=== PATIENT | male | born 1945 | race Caucasian/White ===

== ENCOUNTER 2019-03-16 12:18 | Inpatient (IN) | payer OTHER, MEDICARE ==
[2019-03-16 12:30] VITALS: BMI 33.9
--- NOTE | 2019-03-16 12:53 | PDOC ---
History of Present Illness - General Chief Complaint: Choking Sensation Stated Complaint: DYSPHAGIA / SOB Time Seen by Provider: 03/16/19 12:51 History Source: Patient Exam Limitations: No Limitations - History of Present Illness Initial Comments: 03/16/19 13:13 74M w/ hiatal hernia, HLD, spinal fusion(L4-L5), BLE neuropathy presents with complaint of sticking sensation in the throat x1.5days after ingesting steak on Sunday night(03/14/19). Had an immediate sensation of something sticking in his lower chest. Since Sunday night, could not tolerate PO intake of food or water, experience immediate spitting things up. Has had inability to tolerate saliva, constantly spitting. Has hiccups. Denies dysphonia. Feels better standing upright. Feels increased discomfort when lying down. Saw UC one day prior, XR did not show anything and sent home with metoclopramide. Pt's symptoms did not improve. Tried [employer] chocolate milkshake prior to [facility]. Denies F/C/CP/SOB/palpitations. Years prior, had steak stuck in his throat that prompted an ED visit that eventually passed after glucagon 1mg x2. Has had EGDs ~q5ys with biopsies taken, no balloon dilations. Had Barium Swallow study in November 2018 showed a small sliding hernia, no esoph strictures. Associated Symptoms: denies: chest pain, cough, diaphoresis, fever/chills, headaches, nausea/vomiting (spits up food after ingestion), shortness of breath , syncope Past History - Travel Traveled outside of the country in the last 30 days: No Close contact w/someone who was outside of country & ill: No - Past Medical History Allergies/Adverse Reactions: Allergies Allergy/AdvReac Type Severity Reaction Status Date / Time No Known Allergies Allergy Verified 03/16/19 12:21 Home Medications: Ambulatory Orders Ascorbic Acid [Vitamin C] 500 mg PO DAILY 05/25/16 Calcium (Oyster Shell) [Os-Selvin 500MG -] 500 mg PO DAILY 05/25/16 Furosemide [Lasix -] 40 mg PO ASDIR 05/25/16 Potassium Chloride 10 meq PO ASDIR 05/25/16 Simvastatin 10 mg PO HS 05/25/16 Acetaminophen [Tylenol .Regular Strength -] 650 mg PO Q4H PRN #0 tablet 10/28/ 16 Cyanocobalamin [Vitamin B12 -] 1,000 mcg PO DAILY 03/16/19 Famotidine [Pepcid] 40 mg PO DAILY 03/16/19 Metoclopramide HCl [Reglan -] 10 mg PO QID PRN 03/16/19 Anemia: No Asthma: (c-pap at night) Cancer: No Cardiac Disorders: No CVA: No COPD: No CHF: No Dementia: No Diabetes: No GI Disorders: No Disorders: No HTN: No Hypercholesterolemia: Yes Liver Disease: No Seizures: No Thyroid Disease: No Other medical history: chronic venous insufficiency, neuropathy - Surgical History Abdominal Surgery: No Appendectomy: No Cardiac Surgery: No Cholecystectomy: No Lung Surgery: No Neurologic Surgery: Yes (back, L4-5) Orthopedic Surgery: No Other Surgical History: 03/16/19 13:59 BLE vein sx - Family Disease History Family Disease History: Heart Disease: Father ([place], HTN), Mother (HTN) - Immunization History Immunization Up to Date: Yes - Suicide/Smoking/Psychosocial Hx Smoking Status: No Smoking History: Never smoked Have you smoked in the past 12 months: No Number of Cigarettes Smoked Daily: 0 Hx Alcohol Use: No Drug/Substance Use Hx: No Substance Use Type: None Hx Substance Use Treatment: No Review of Systems - Review of Systems Able to Perform ROS?: Yes Is the patient limited Polish proficient: No Constitutional: No: Chills, Diaphoresis, Fever HEENTM: Yes: Difficulty Swallowing, Mouth Swelling (will immediately spit up food/water/saliva). No: Eye Pain, Blurred Vision Respiratory: No: Cough, Orthopnea, Shortness of Breath, Stridor, Wheezing Cardiac (ROS): No: Chest Pain (sensation of sticking in lower midline chest), Irregular Heart Rate, Palpitations ABD/GI: Yes: Difficulty Swallowing. No: Constipated, Diarrhea, Nausea, Vomiting , Abdominal cramping : No: Burning, Dysuria, Urgency Integumentary: No: Erythema, Flushing Neurological: No: Headache, Numbness, Dizziness *Physical Exam - Vital Signs Last Vital Signs Temp Pulse Resp BP Pulse Ox 98.3 F 83 18 143/87 100 03/16/19 12:22 03/16/19 12:22 03/16/19 12:22 03/16/19 12:22 03/16/19 12:22 - Physical Exam General Appearance: Yes: Mild Distress. No: Obese HEENT: positive: Normal Voice, Excessive drooling (spitting clear and brown saliva). negative: Scleral Icterus (R), Scleral Icterus (L) Neck: positive: Trachea midline. negative: Stridor, Lymphadenopathy (R), Lymphadenopathy (L) Respiratory/Chest: positive: Lungs Clear, Normal Breath Sounds. negative: Respiratory Distress, Labored Respiration, Crackles, Rales, Rhonchi, Stridor, Wheezing Cardiovascular: positive: Regular Rhythm, Regular Rate, S1, S2 Gastrointestinal/Abdominal: positive: Soft, Other (midline rectus diastasis). negative: Distended, Guarding, Rebound Extremity: positive: Normal Range of Motion. negative: Swelling, Calf Tenderness, Erythema Integumentary: positive: Dry, Warm Neurologic: positive: Alert ED Treatment Course - LABORATORY CBC & Chemistry Diagram: 03/16/19 14:00 03/16/19 14:00 Medical Decision Making - Medical Decision Making 03/16/19 14:04 - fu CBC, CMP, INR, T&S - fu CXR, neck XR - fu EKG - administer glucagon 2mg IV 03/16/19 14:54 - paged GI(Dr Juan Parada -- [facility]) 03/16/19 15:56 - Dr Parada called back, no longer comes to [facility] - Dr Grant contacted -- recommends another glucagon 2mg IV, admission, possible EGD tonight - patient informed of his bloodwork results and recommendation for admission with possible EGD tonight 03/16/19 23:57 - patient endorses feeling better, felt a sensation that something has passed into his stomach - Dr Grant evaluated pt, believes that EGD is no longer indicated, recommends discharge *DC/Admit/Observation/Transfer Diagnosis at time of Disposition: Other foreign object in esophagus causing other injury, initial encounter - Discharge Dispostion Condition at time of disposition: Stable Decision to Admit order: Yes - Referrals - Patient Instructions - Post Discharge Activity
[2019-03-16] MEDS ORDERED: GlUCAGON HUMAN RECOMBINANT 1 MG/VIAL ONE ×3 (13:36→15:36)
[2019-03-16] MEDS ORDERED: GLUCAGON 1 MG KIT IVPUSH ONE ×2 (13:44→15:49)
--- NOTE | 2019-03-16 13:49 | PDOC ---
Attending Attestation - Resident Resident Name: Augie Perez - ED Attending Attestation I have performed the following: I have examined & evaluated the patient, The case was reviewed & discussed with the resident, I agree w/resident's findings & plan, Exceptions are as noted - HPI HPI: 74 yo M history prior food impaction, hiatal hernia presents with suspected food impaction. He states that he ate a piece of steak 2 days ago, felt as if it was stuck. He has tried park k[place], water, but nothing has helped. He tried to drink a chocolate shake today to help move the food down, but to no avail. He states he feels as if it is stuck at the base of his chest. He has been regurgitating anything he tries to swallow, and after he vomits, he gets hiccups. - Physicial Exam PE: GENERAL: Awake, alert, and fully oriented, in no acute distress. +Intermittent hiccups HEAD: No signs of trauma EYES: PERRLA, EOMI, sclera anicteric, conjunctiva clear ENT: Auricles normal inspection, hearing grossly normal, nares patent, oropharynx clear without exudates. Moist mucosa NECK: Normal ROM, supple, no lymphadenopathy, JVD, or masses LUNGS: Breath sounds equal, clear to auscultation bilaterally. No wheezes, and no crackles HEART: Regular rate and rhythm, normal S1 and S2, no murmurs, rubs or gallops ABDOMEN: Soft, nontender, normoactive bowel sounds. No guarding, no rebound. No masses EXTREMITIES: Normal range of motion, no edema. No clubbing or cyanosis. No cords, erythema, or tenderness NEUROLOGICAL: Cranial nerves II through XII grossly intact. Normal speech, normal gait. Motor and sensation intact SKIN: Warm, dry, normal turgor, no rashes or lesions noted. - Medical Decision Making 03/16/19 13:47 Pt had similar symptoms once in the past, and glucagon helped him to pass the food bolus. Will give a trial of glucagon, as he indicates the lower esophagus as the location of the impaction. If unsuccessful, will call GI for assistance.
[2019-03-16 14:32] LABS: BASO % 0.4 % (0-2.0); EOS % 0.1 % (0-4.5); HEMATOCRIT 47.7 % (35.4-49); HEMOGLOBIN 16.1 GM/dL (11.7-16.9); LYMPH % 1.5 % (8-40); MCH 29.2 pg (25.7-33.7); MCHC 33.7 g/dl (32.0-35.9); MEAN CELL VOLUME 86.8 fl (80-96); MEAN PLT VOLUME 9.1 fl (7.5-11.1); MONO % 3.6 % (3.8-10.2); NEUT % 94.4 % (42.8-82.8); PLATELET COUNT 298 K/MM3 (134-434); RDW 14.4 % (11.9-15.9)
[2019-03-16 14:44] LABS: INR 1.11 (0.83-1.09); PROTHROMBIN TIME (PATIENT) 13.1 SEC (9.7-13.0)
[2019-03-16 14:57] LABS: ALBUMIN 3.9 g/dl (3.4-5.0); BILIRUBIN,TOTAL 1.7 mg/dL (0.2-1); BLOOD UREA NITROGEN 27.3 mg/dL (7-18); CALCIUM 9.6 mg/dL (8.5-10.1); CREATININE 1.2 mg/dL (0.55-1.3); POTASSIUM 3.8 mmol/L (3.5-5.1); TOT PROT 7.8 g/dl (6.4-8.2)
[2019-03-16] MEDS ORDERED: SODIUM CHLORIDE 0.9% 500 ML INFUS.BAG IV ONE (15:54)
[2019-03-16] MEDS ORDERED: AMPICILLIN NA/SULBACTAM NA 3 GM in SODIUM CHLORIDE 100 ML IVPB ONE (16:40)
[2019-03-16 17:45] LABS: PH,URINE 5.5 (5.0-8.0); URINE APPEARANCE Clear; URINE BILIRUBIN 1+ (NEGATIVE); URINE COLOR Yellow; URINE GLUCOSE (UA) Negative (NEGATIVE); URINE KETONE 2+ (NEGATIVE); URINE LEUK ESTERASE Negative (NEGATIVE); URINE NITRITE Negative (NEGATIVE); URINE PROTEIN 1+ (NEGATIVE); URINE UROBILINOGEN 0.2 mg/dL (0.2-1.0)
[2019-03-16 18:18] LABS: ANISOCYTOSIS 0; MACROCYTOSIS 0; PLATELET ESTIMATE NORMAL
[2019-03-16] MEDS ORDERED: D5-1/2NS+20 MEQ KCL - 20 MEQ/1,000 ML INFUS.BAG IV SCH (18:45)
[2019-03-16 18:51] LABS: EPI CELLS 2.5 /HPF (0-5/HPF); HYALINE CASTS 14.6 /lpf (0-8); URINE BACTERIA 0.5 /hpf (NEGATIVE); URINE RBC 1.4 /hpf (0-4); URINE WBC 1.3 /hpf (0-5)
[2019-03-16 19:41] VITALS: PULSE 70
[2019-03-16] MEDS ORDERED: PROMETHAZINE HCL 25 MG/1 ML VIAL IVPUSH PRN (22:50)
[2019-03-16] MEDS ORDERED: ONDANSETRON 4 MG/2 ML VIAL IVPUSH PRN (22:50)
[2019-03-16] MEDS ORDERED: LACTATED RINGERS SOLUTION 1,000 ML IV SCH (23:00)
--- NOTE | 2019-03-17 00:17 | CONS ---
DATE OF CONSULTATION: 03/16/2019 Patient is a 74-year-old man with a past medical history of hiatal hernia, hyperlipidemia, spinal fusion, previous episode of food impaction approximately 5 years ago who now presents with sensation of food sticking in his throat since Sunday night, at which time he ate steak. Since Sunday, he did not tolerate p.o. intake. He presented to the urgent care center and was given Reglan and sent home. The patient has been improved. Earlier today he tried a [employer] milkshake, but again could not tolerate p.o. intake, prompting him to come to the emergency room for further evaluation. While in the ER, he received 2 doses of glucagon and short while ago was able to tolerate water and feels great at this time. He denies any chest pain, shortness of breath, palpitations, fevers, chills. He states he is feeling well. He is a patient of Dr. Parada and had a barium swallow in November of 2018, which showed this small sliding hernia. No strictures at the time. PAST MEDICAL/SURGICAL HISTORY: As listed in the HPI, additional surgical history of vein surgery. HOME MEDICATIONS: Vitamin C, Lasix, potassium, simvastatin, vitamin B12, Pepcid, and Reglan. ALLERGIES: No known drug allergies. FAMILY HISTORY: Significant for heart disease. SOCIAL HISTORY: Does not smoke, does not drink or use drugs. REVIEW OF SYSTEMS: As per the HPI. PHYSICAL EXAMINATION: Vital Signs: Temperature 98, pulse 70, respiratory rate 12, oxygen saturation 98% on room air, blood pressure 130/64. General: In no acute distress. This is a pleasant man. HEENT: Anicteric sclerae. Cardiovascular: S1, S2. Regular rate and rhythm. Lungs: Bilaterally clear to auscultation. Abdomen: Soft, nontender. Extremities: No edema. LABORATORY: White blood cell count 18, hemoglobin 16, hematocrit 47, platelet count 298, INR 1.1. Sodium 148, potassium 3.8, BUN 27, creatinine 1.2, glucose of 136, total bilirubin 1.7, AST 32, ALT 43, alkaline phosphatase 106. Urine with ketones. Chest x-ray: Without any acute process. Soft tissue and neck x-ray: No gross issues. IMPRESSION: Dysphagia, currently resolved. RECOMMENDATIONS: Considering he is tolerating p.o. 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 Recommend a soft diet for the next couple of weeks until he is examined with an upper endoscopy and PPI therapy. DO STEPHON RIVERA/[id number]
[2019-03-17 01:13] VITALS: BP 132/62; TEMP 98.2
--- NOTE | 2019-03-17 01:21 | HOSP ---
Subjective - Review of Symptoms Events since last encounter: Hospitalist Encounter Was notified by the primary RN that the patient adamantly refusing to stay, wants to leave right now. Was asked to assess. Physical Examination Vital Signs: Vital Signs Temperature 98.2 F 03/17/19 01:12 Pulse Rate 70 03/17/19 01:12 Respiratory Rate 18 03/17/19 01:12 Blood Pressure 132/62 03/17/19 01:12 O2 Sat by Pulse Oximetry (%) 98 03/17/19 01:12 Labs: CBC, BMP 03/16/19 14:00 03/16/19 14:00
[2019-03-17] MEDS ORDERED: ENOXAPARIN NA (PORCINE) 40 MG/0.4 ML DISP.SYRIN SQ SCH (10:00)
[2019-03-17] MEDS ORDERED: PANTOPRAZOLE SODIUM 40 MG VIAL IVPUSH SCH (10:00)
--- NOTE | 2019-03-17 11:11 | EKG ---
Test Reason : Blood Pressure : / mmHG Vent. Rate : 076 BPM Atrial Rate : 076 BPM P-R Int : 168 ms QRS Dur : 096 ms QT Int : 378 ms P-R-T Axes : 029 -27 002 degrees QTc Int : 425 ms NORMAL SINUS RHYTHM POSSIBLE LEFT ATRIAL ENLARGEMENT LEFT VENTRICULAR HYPERTROPHY ABNORMAL ECG WHEN COMPARED WITH ECG OF 26-MAY-2016 09:26, ST NO LONGER ELEVATED IN INFERIOR LEADS ST NO LONGER ELEVATED IN LATERAL LEADS NONSPECIFIC T WAVE ABNORMALITY NOW EVIDENT IN LATERAL LEADS Confirmed by RONY GARZA MD ([id number]) on 03/17/2019 11:10:52 AM Referred By: Confirmed By:RONY GARZA MD
== END 2019-03-17 01:24 | disposition left against medical advice (07) | DRG 395 ==
LOC: JER 12:18 → JERBED 16:09
PROVIDERS: ADMIT Internal Medicine; ATTEND Internal Medicine
DX: T18.128A Food in esophagus causing other injury, initial encounter (principal); E78.5 Hyperlipidemia, unspecified; G57.83 Other specified mononeuropathies of bilateral lower limbs; K44.9 Diaphragmatic hernia without obstruction or gangrene; I73.9 Peripheral vascular disease, unspecified; X58.XXXA Exposure to other specified factors, initial encounter; Y92.89 Other specified places as the place of occurrence of the external cause
CPT/HCPCS: 36415; 70360-TC-FY; 71046-TC-FY; 80053; 81003; 85025; 85610; 86850; 86900; 86901; 87040; 93005; 93010; 99284-25

== ENCOUNTER 2019-03-18 14:30 | Inpatient (IN) | payer OTHER, MEDICARE ==
--- NOTE | 2019-03-18 14:35 | PDOC ---
Rapid Medical Evaluation Chief Complaint: Revisit, Lab Variance Time Seen by Provider: 03/18/19 14:33 Medical Evaluation: Allergies Allergy/AdvReac Type Severity Reaction Status Date / Time No Known Allergies Allergy Verified 03/16/19 12:21 03/18/19 14:34 HPI: Told to return to the ER for + BC PE: no gross deficits ORDERS: Labs Discharge Disposition - Diagnosis Abnormal laboratory test - Referrals - Patient Instructions - Post Discharge Activity
[2019-03-18 15:36] LABS: VENOUS PC02 41.3 mmHg (38-52); VENOUS PH 7.39 (7.31-7.41); VENOUS PO2 50.5 mmHg (28-48)
[2019-03-18 15:37] LABS: BASO % 0.6 % (0-2.0); EOS % 2.3 % (0-4.5); HEMATOCRIT 46.5 % (35.4-49); HEMOGLOBIN 15.6 GM/dL (11.7-16.9); LYMPH % 7.4 % (8-40); MCH 29.4 pg (25.7-33.7); MCHC 33.4 g/dl (32.0-35.9); MEAN CELL VOLUME 87.9 fl (80-96); MEAN PLT VOLUME 8.7 fl (7.5-11.1); MONO % 15.3 % (3.8-10.2); NEUT % 74.4 % (42.8-82.8); PLATELET COUNT 220 K/MM3 (134-434); RDW 14.5 % (11.9-15.9)
[2019-03-18 15:38] LABS: URINE APPEARANCE CLEAR; URINE BILIRUBIN NEGATIVE (NEGATIVE); URINE COLOR YELLOW; URINE GLUCOSE (UA) NEGATIVE (NEGATIVE); URINE KETONE NEGATIVE (NEGATIVE); URINE LEUK ESTERASE NEGATIVE (NEGATIVE); URINE NITRITE NEGATIVE (NEGATIVE); URINE PROTEIN NEGATIVE (NEGATIVE)
[2019-03-18 16:00] LABS: INR 1.08 (0.83-1.09); PROTHROMBIN TIME (PATIENT) 12.8 SEC (9.7-13.0)
[2019-03-18 16:46] LABS: ALBUMIN 3.4 g/dl (3.4-5.0); ALK PHOS 105 U/L (45-117); ANION GAP 6 MMOL/L (8-16); BLOOD UREA NITROGEN 18.2 mg/dL (7-18); CHLORIDE 109 mmol/L (98-107); CO2 26 mmol/L (21-32); CREATININE 1.2 mg/dL (0.55-1.3); GLUCOSE,RANDOM 92 mg/dL (74-106); POTASSIUM 4.1 mmol/L (3.5-5.1); SGOT/AST 55 U/L (15-37); SGPT/ALT 77 U/L (13-61); SODIUM 140 mmol/L (136-145)
[2019-03-18 17:08] LABS: BILIRUBIN,TOTAL 1.2 mg/dL (0.2-1); TOT PROT 6.9 g/dl (6.4-8.2)
--- NOTE | 2019-03-18 17:14 | PDOC ---
History of Present Illness - General Chief Complaint: Revisit, Lab Variance Stated Complaint: REVISIT Time Seen by Provider: 03/18/19 14:33 History Source: Patient Exam Limitations: No Limitations - History of Present Illness Initial Comments: 03/18/19 17:11 74yo M with PMH of HLD, spinal fusion 2014 presenting to ED for positive blood culture results. Patient says he was here 3d ago for food bolus, started to feel better and left. His WBC was 14 so blood cultures were drawn. Patient says that since he left the hospital he felt fine. Denies fever, chills, cough, n/v/d , headache, rashes, urinary symptoms. No mechanical or prosthetic valves or stents, no recent surgeries, no recent illnesses or antibiotic use. PMD: Marty PMH: see hpi PSH: see hpi Meds: see med rec Allergies: nkda Past History - Past Medical History Allergies/Adverse Reactions: Allergies Allergy/AdvReac Type Severity Reaction Status Date / Time No Known Allergies Allergy Verified 03/18/19 14:36 Home Medications: Ambulatory Orders Ascorbic Acid [Vitamin C] 500 mg PO DAILY 05/25/16 Calcium (Oyster Shell) [Os-Selvin 500MG -] 500 mg PO DAILY 05/25/16 Furosemide [Lasix -] 40 mg PO ASDIR 05/25/16 Potassium Chloride 10 meq PO ASDIR 05/25/16 Simvastatin 10 mg PO HS 05/25/16 Acetaminophen [Tylenol .Regular Strength -] 650 mg PO Q4H PRN #0 tablet Cyanocobalamin [Vitamin B12 -] 1,000 mcg PO DAILY 03/16/19 Famotidine [Pepcid] 40 mg PO DAILY 03/16/19 Metoclopramide HCl [Reglan -] 10 mg PO QID PRN 03/16/19 Anemia: No Asthma: (c-pap at night) Cancer: No Cardiac Disorders: No CVA: No COPD: No CHF: No Dementia: No Diabetes: No GI Disorders: No Disorders: No HTN: No Hypercholesterolemia: Yes Liver Disease: No Seizures: No Thyroid Disease: No - Surgical History Abdominal Surgery: No Appendectomy: No Cardiac Surgery: No Cholecystectomy: No Lung Surgery: No Neurologic Surgery: Yes (back, L4-5) Orthopedic Surgery: No - Family Disease History Family Disease History: Heart Disease: Father ([place], HTN), Mother (HTN) - Immunization History Immunization Up to Date: Yes - Suicide/Smoking/Psychosocial Hx Smoking Status: No Smoking History: Never smoked Have you smoked in the past 12 months: No Number of Cigarettes Smoked Daily: 0 Hx Alcohol Use: No Drug/Substance Use Hx: No Substance Use Type: None Hx Substance Use Treatment: No Review of Systems - Review of Systems Constitutional: No: Symptoms Reported HEENTM: No: Symptoms Reported Respiratory: No: Symptoms reported Cardiac (ROS): No: Symptoms Reported ABD/GI: No: Symptoms Reported : No: Symptoms Reported Musculoskeletal: No: Symptoms Reported Integumentary: No: Symptoms Reported Neurological: No: Symptoms reported *Physical Exam - Vital Signs Last Vital Signs Temp Pulse Resp BP Pulse Ox 98.1 F 76 18 140/62 99 03/18/19 14:34 03/18/19 14:34 03/18/19 14:34 03/18/19 14:34 03/18/19 14:34 - Physical Exam General Appearance: Yes: Nourished, Appropriately Dressed. No: Apparent Distress HEENT: positive: EOMI, JAG, Normal ENT Inspection Neck: positive: Trachea midline, Supple. negative: Lymphadenopathy (R), Lymphadenopathy (L) Respiratory/Chest: positive: Lungs Clear, Normal Breath Sounds. negative: Crackles, Rales, Rhonchi, Stridor, Wheezing Cardiovascular: positive: Regular Rhythm, Regular Rate, S1, S2. negative: Edema , JVD, Murmur Gastrointestinal/Abdominal: positive: Normal Bowel Sounds, Soft. negative: Tender Musculoskeletal: negative: CVA Tenderness Extremity: positive: Normal Capillary Refill. negative: Swelling, Calf Tenderness Integumentary: positive: Normal Color, Dry, Warm Neurologic: positive: gate person II-XII NML intact, Fully Oriented, Alert, Normal Mood/ Affect, Normal Response, Motor Strength /5 ED Treatment Course - LABORATORY CBC & Chemistry Diagram: 03/18/19 15:17 03/18/19 15:17 - ADDITIONAL ORDERS Additional order review: Laboratory Results 03/18/19 03/18/19 03/18/19 15:17 15:17 15:17 PT with INR 12.80 INR 1.08 PTT (Actin FS) VBG pH 7.39 POC VBG pCO2 41.3 POC VBG pO2 50.5 H VBG HCO3 24.5 VBG O2 Sat (Michael) 84.8 H VBG Base Excess 0 Sodium Potassium Chloride Carbon Dioxide Anion Gap BUN Creatinine Est GFR (CKD-EPI)AfAm Est GFR (CKD-EPI)NonAf Random Glucose Lactic Acid Calcium Total Bilirubin AST ALT Alkaline Phosphatase Total Protein Albumin Urine Color Yellow Urine Appearance Clear Urine pH 5.0 Ur Specific [place] 1.027 Urine Protein Negative Urine Glucose (UA) Negative Urine Ketones Negative Urine Blood Negative Urine Nitrite Negative Urine Bilirubin Negative Urine Urobilinogen 1.0 Ur Leukocyte Esterase Negative 03/18/19 03/18/19 03/18/19 15:17 15:17 15:17 PT with INR INR PTT (Actin FS) 31.1 VBG pH POC VBG pCO2 POC VBG pO2 VBG HCO3 VBG O2 Sat (Michael) VBG Base Excess Sodium 140 Potassium 4.1 Chloride 109 H Carbon Dioxide 26 Anion Gap 6 L BUN 18.2 H Creatinine 1.2 Est GFR (CKD-EPI)AfAm 69.60 Est GFR (CKD-EPI)NonAf 60.05 Random Glucose 92 Lactic Acid 1.6 Calcium 9.0 Total Bilirubin 1.2 H AST 55 H ALT 77 H Alkaline Phosphatase 105 Total Protein 6.9 Albumin 3.4 Urine Color Urine Appearance Urine pH Ur Specific [place] Urine Protein Urine Glucose (UA) Urine Ketones Urine Blood Urine Nitrite Urine Bilirubin Urine Urobilinogen Ur Leukocyte Esterase 03/18/19 15:17 RBC 5.30 MCV 87.9 MCHC 33.4 RDW 14.5 MPV 8.7 Neutrophils % 74.4 D Lymphocytes % 7.4 L D Monocytes % 15.3 H D Eosinophils % 2.3 D Basophils % 0.6 Medical Decision Making - Medical Decision Making 03/18/19 17:45 74yo M with PMH of HLD, spinal fusion 2013 presenting to ED for positive blood culture results. Patient says he was here 3d ago for food bolus, started to feel better and left. His WBC was 14 so blood cultures were drawn. Patient says that since he left the hospital he felt fine. Denies fever, chills, cough, n/v/d , headache, rashes, urinary symptoms. No mechanical or prosthetic valves or stents, no recent surgeries, no recent illnesses or antibiotic use. vitals normal, afebrile pe: normal patient had positive blood cultures in anaerobic and aerobic vials growing gram positive cocci in chains. had wbc of 18 when cultures were drawn. cannot definitively say it is contaminant. labs done today, no white count however given positive cultures, will admit for serial cultures and checking strain. *DC/Admit/Observation/Transfer Diagnosis at time of Disposition: Abnormal laboratory test, Positive blood culture - Discharge Dispostion Condition at time of disposition: Good Decision to Admit order: Yes - Referrals Referrals: Hai Ferguson MD [Primary Care Provider] - - Patient Instructions - Post Discharge Activity
--- NOTE | 2019-03-18 18:30 | PDOC ---
Documentation entered by Jena Bauer SCRIBE, acting as scribe for Blossom Bowman MD. Blossom Bowman MD: This documentation has been prepared by the scribe, Jena Bauer SCRIBE, under my direction and personally reviewed by me in its entirety. I confirm that the documentation accurately reflects all work, treatment, procedures, and medical decision making performed by me. Attending Attestation - Resident Resident Name: Anum Ricks - ED Attending Attestation I have performed the following: I have examined & evaluated the patient, The case was reviewed & discussed with the resident, I agree w/resident's findings & plan, Exceptions are as noted - HPI HPI: 03/18/19 17:49 The patient is a 74-year-old male, with a past medical history of HLD, spinal fusion - 2013, who presents to the ED with positive blood culture results. The patient was seen in the ER on 03/16/19 for an impacted food bolus and had a white count of 18,000. He was discharged with GI follow up. The patient denies any fevers, chills, nausea, vomiting, diarrhea, or abdominal pain. Denies any chest pain, palpitations, or shortness of breath. Denies any headache, weakness, dizziness, lightheadedness, or changes in strength or sensation. Allergies: NKA - Physicial Exam PE: 03/18/19 17:50 NAD, well appearing, EOMI, PERRL, MMM, nl conjunctiva, anicteric; neck supple. lungs clear, RRR, abdomen soft nontender. Back nontender. PHELPS x4, no focal neuro deficits. No peripheral edema. normal color for ethnicity, WWP. - Medical Decision Making 03/18/19 18:29\ hpi as documented VS reviewed, wnl Vital Signs Temp Pulse Resp BP Pulse Ox 98.1 F 76 18 140/62 99 03/18/19 14:34 03/18/19 14:34 03/18/19 14:34 03/18/19 14:34 03/18/19 14:34 blood cultures from 03/16 positive in both for cocci in chains. needs serial cultures, checks no fever, nontoxic appearing repeat labs reassuring due to incidental finding with blood cultures obtained previously, to be admitted until organism identified. difficult to say it is contamination with both bottles positive.
--- NOTE | 2019-03-18 18:32 | HP ---
Admitting History and Physical - Primary Care Physician PCP: Hai Ferguson - Admission Chief Complaint: returned for positive blood cultures History of Present Illness: Patient is a 74-year-old male with a past medical history of HLD, spinal fusion 2014 and dysphagia. He presents to the ED today after he was called to return to the ED for positive blood culture results. Patient was in the ED on 03/16/19 with impacted food bolus. WBC on that admission was 18K. Blood cultures were collected and he was sent home with GI follow up. Returns to the ED today when his blood cultures were noted to be growing +gram cocci. The patient denies any fevers, chills, nausea, vomiting, diarrhea, or abdominal pain. Denies any chest pain, palpitations, or shortness of breath. Denies any headache, weakness, dizziness, lightheadedness, or changes in strength or sensation. On admission, WBC 5.0, and blood and urine cultures pending. History Source: Patient, Family Member Limitations to Obtaining History: No Limitations - Past Medical History Cardiovascular: Yes: HTN, Hyperlipdemia - Past Surgical History Past Surgical History: Yes: Vein Stripping/Ligation (40 years ago) - Smoking History Smoking history: Never smoked Have you smoked in the past 12 months: No Aproximately how many cigarettes per day: 0 - Alcohol/Substance Use Hx Alcohol Use: No History of Substance Use: reports: None - Social History Usual Living Arrangement: Yes: With Spouse Occupation: retired History of Recent Travel: No Home Medications - Allergies Allergies/Adverse Reactions: Allergies Allergy/AdvReac Type Severity Reaction Status Date / Time No Known Allergies Allergy Verified 03/18/19 14:36 - Home Medications Home Medications: Ambulatory Orders Ascorbic Acid [Vitamin C] 500 mg PO DAILY 05/25/16 Calcium (Oyster Shell) [Os-Selvin 500MG -] 500 mg PO DAILY 05/25/16 Furosemide [Lasix -] 40 mg PO ASDIR 05/25/16 Potassium Chloride 10 meq PO ASDIR 05/25/16 Simvastatin 10 mg PO HS 05/25/16 Acetaminophen [Tylenol .Regular Strength -] 650 mg PO Q4H PRN #0 tablet Cyanocobalamin [Vitamin B12 -] 1,000 mcg PO DAILY 03/16/19 Famotidine [Pepcid] 40 mg PO DAILY 03/16/19 Metoclopramide HCl [Reglan -] 10 mg PO QID PRN 03/16/19 Family Disease History - Family Disease History Family History: Denies Review of Systems - Review of Systems Constitutional: reports: No Symptoms Eyes: reports: No Symptoms HENT: reports: Difficult Swallowing Neck: reports: No Symptoms Cardiovascular: reports: No Symptoms Respiratory: reports: Other (mild wheezing on right upper lobe, has hx of sleep apnea and uses cpap at night) Genitourinary: reports: No Symptoms Physical Examination Vital Signs: Vital Signs Temperature 98.1 F 03/18/19 14:34 Pulse Rate 76 03/18/19 14:34 Respiratory Rate 18 03/18/19 14:34 Blood Pressure 140/62 03/18/19 14:34 O2 Sat by Pulse Oximetry (%) 99 03/18/19 14:34 Constitutional: Yes: Well Nourished, No Distress, Calm Eyes: Yes: WNL, Conjunctiva Clear HENT: Yes: WNL, Atraumatic Neck: Yes: Supple Cardiovascular: Yes: Regular Rate and Rhythm Respiratory: Yes: Regular, Wheezes (mild), Other Gastrointestinal: Yes: WNL ...Rectal Exam: Yes: Deferred Edema: No Labs: CBC, BMP 03/18/19 15:17 03/18/19 15:17 Imaging - Results Chest X-ray: Report Reviewed Problem List - Problems (1) Positive blood culture Assessment/Plan: WBC 18 on 03/16/2019 with + blood cultures (both bottles) growing gram positive cocci in chains Repeat blood and urine cultures pending no fever, no chills, lactic acid within normal limits will empirically treat overnight pending repeat blood cultures chest xray negative Code(s): R78.81 - BACTEREMIA (2) Dysphagia Assessment/Plan: soft diet GI follow up as an outpatient Code(s): R13.10 - DYSPHAGIA, UNSPECIFIED (3) Prophylactic measure Assessment/Plan: fen tolerating PO monitor electrolytes low salt diet Code(s): Z29.9 - ENCOUNTER FOR PROPHYLACTIC MEASURES, UNSPECIFIED Visit type - Emergency Visit Emergency Visit: Yes Care time: The patient presented to the Emergency Department on the above date and was hospitalized for further evaluation of their emergent condition. - New Patient This patient is new to me today: Yes Date on this admission: 03/18/19 - Critical Care Critical Care patient: No
[2019-03-18] MEDS ORDERED: FUROSEMIDE 40 MG TABLET (FP) PO SCH (18:45)
[2019-03-18] MEDS ORDERED: PIPERACILLIN/TAZOB 3.375 GM 3.375 GM/50 ML BAG IVPB ONE (20:44)
[2019-03-18] MEDS: PIPERACILLIN/TAZOB 3.375 GM 3.375 GM in DEXTROSE 5%-WATER - 50 ML IVPB SCH (20:53)
[2019-03-18] MEDS ORDERED: ACETAMINOPHEN 325 MG TABLET (FP) PO PRN (22:22)
[2019-03-18] MEDS ORDERED: ATORVASTATIN CA 10 MG TABLET (FP) ONE (23:00)
[2019-03-18] MEDS: ATORVASTATIN CA 10 MG TABLET (FP) PO SCH (23:07)
[2019-03-19] MEDS ORDERED: PIPERACILLIN/TAZOB 3.375 GM 3.375 GM/50 ML BAG IVPB ONE (03:25)
[2019-03-19] MEDS: PIPERACILLIN/TAZOB 3.375 GM 3.375 GM in DEXTROSE 5%-WATER - 50 ML IVPB SCH ×3 (03:47→18:26)
[2019-03-19 04:29] LABS: BASO % 0.7 % (0-2.0); HEMATOCRIT 44.3 % (35.4-49); HEMOGLOBIN 14.8 GM/dL (11.7-16.9); LYMPH % 9.3 % (8-40); MCH 28.9 pg (25.7-33.7); MCHC 33.4 g/dl (32.0-35.9); MEAN CELL VOLUME 86.6 fl (80-96); MEAN PLT VOLUME 8.7 fl (7.5-11.1); MONO % 13.8 % (3.8-10.2); NEUT % 71.2 % (42.8-82.8); PLATELET COUNT 211 K/MM3 (134-434); RBC 5.12 M/mm3 (4.00-5.60); RDW 14.1 % (11.9-15.9); WHITE BLOOD COUNT 5.2 K/mm3 (4.0-10.0)
[2019-03-19 04:38] VITALS: BMI 34.2
[2019-03-19 04:57] LABS: BLOOD UREA NITROGEN 14.8 mg/dL (7-18); CALCIUM 8.4 mg/dL (8.5-10.1); CREATININE 1.1 mg/dL (0.55-1.3); MAGNESIUM 2.4 mg/dL (1.8-2.4); TOT PROT 6.2 g/dl (6.4-8.2)
[2019-03-19] MEDS ORDERED: PIPERACILLIN/TAZOBACTAM 3.375 GM VIAL IVPB ONE (09:47)
[2019-03-19] MEDS ORDERED: DEXTROSE 5%-WATER - 50 ML IVPB ONE (09:48)
[2019-03-19] MEDS: FUROSEMIDE 40 MG TABLET (FP) PO SCH (10:02)
--- NOTE | 2019-03-19 10:17 | EKG ---
Test Reason : Blood Pressure : / mmHG Vent. Rate : 078 BPM Atrial Rate : 078 BPM P-R Int : 164 ms QRS Dur : 090 ms QT Int : 376 ms P-R-T Axes : 038 -25 009 degrees QTc Int : 428 ms NORMAL SINUS RHYTHM MINIMAL VOLTAGE CRITERIA FOR LVH, MAY BE NORMAL VARIANT INFERIOR INFARCT , AGE UNDETERMINED ABNORMAL ECG WHEN COMPARED WITH ECG OF 16-MAR-2019 16:11, NO SIGNIFICANT CHANGE WAS FOUND Confirmed by MYLES SUN, JUSTINE ([id number]) on 03/19/2019 10:17:12 AM Referred By: Confirmed By:JUSTINE BUENO MD
--- NOTE | 2019-03-19 11:29 | PN ---
Progress Note (short form) - Note Progress Note: Pt called back to Er for psitive blood cultryes he was in ER a few days ago for impacted food bolus and was dc home He had seen GI and ENT started on soft diet No complaints no rashes, sore throat no fever Vital Signs - 24 hr 03/18/19 03/18/19 03/19/19 14:34 20:44 03:00 Temperature 98.1 F 99.1 F Pulse Rate 76 Pulse Rate [ 64 Left Radial] Respiratory 18 16 Rate Blood Pressure 140/62 Blood Pressure 120/58 L [Left Arm] O2 Sat by Pulse 99 98 99 Oximetry (%) 03/19/19 03/19/19 04:31 10:21 Temperature 98.4 F 98.1 F Pulse Rate 63 83 Pulse Rate [ Left Radial] Respiratory 18 19 Rate Blood Pressure 131/71 140/70 Blood Pressure [Left Arm] O2 Sat by Pulse 98 Oximetry (%) Current Medications Generic Name Dose Route Start Last Admin Trade Name Freq PRN Reason Stop Dose Admin Acetaminophen 650 mg 03/18/19 22:22 Tylenol - PO Q6H PRN PAIN LEVEL 4 - 6 Atorvastatin Calcium 10 mg 03/18/19 22:00 03/18/19 23:07 Lipitor - PO 10 mg HS JACOBY Administration Furosemide 40 mg 03/19/19 10:00 03/19/19 10:02 Lasix - PO 40 mg DAILY JACOBY Administration Piperacillin Sod/Tazobactam 50 mls @ 100 mls/hr 03/18/19 18:45 Sod 3.375 gm/ Dextrose IVPB Q8H-IV JACOBY Protocol Laboratory Results - last 24 hr 03/18/19 03/18/19 03/18/19 15:17 15:17 15:17 WBC 5.0 RBC 5.30 Hgb 15.6 Hct 46.5 MCV 87.9 MCH 29.4 MCHC 33.4 RDW 14.5 Plt Count 220 D MPV 8.7 Absolute Neuts (auto) 3.7 Neutrophils % 74.4 D Lymphocytes % 7.4 L D Monocytes % 15.3 H D Eosinophils % 2.3 D Basophils % 0.6 Nucleated RBC % 0 PT with INR INR PTT (Actin FS) 31.1 VBG pH POC VBG pCO2 POC VBG pO2 VBG HCO3 VBG O2 Sat (Michael) VBG Base Excess Sodium 140 Potassium 4.1 Chloride 109 H Carbon Dioxide 26 Anion Gap 6 L BUN 18.2 H Creatinine 1.2 Est GFR (CKD-EPI)AfAm 69.60 Est GFR (CKD-EPI)NonAf 60.05 Random Glucose 92 Lactic Acid Calcium 9.0 Magnesium Total Bilirubin 1.2 H AST 55 H ALT 77 H Alkaline Phosphatase 105 Creatine Kinase 367 H Creatine Kinase Index 1.8 CK-MB (CK-2) 6.7 H Troponin I < 0.02 Total Protein 6.9 Albumin 3.4 Urine Color Urine Appearance Urine pH Ur Specific [place] Urine Protein Urine Glucose (UA) Urine Ketones Urine Blood Urine Nitrite Urine Bilirubin Urine Urobilinogen Ur Leukocyte Esterase 03/18/19 03/18/19 03/18/19 15:17 15:17 15:17 WBC RBC Hgb Hct MCV MCH MCHC RDW Plt Count MPV Absolute Neuts (auto) Neutrophils % Lymphocytes % Monocytes % Eosinophils % Basophils % Nucleated RBC % PT with INR 12.80 INR 1.08 PTT (Actin FS) VBG pH POC VBG pCO2 POC VBG pO2 VBG HCO3 VBG O2 Sat (Michael) VBG Base Excess Sodium Potassium Chloride Carbon Dioxide Anion Gap BUN Creatinine Est GFR (CKD-EPI)AfAm Est GFR (CKD-EPI)NonAf Random Glucose Lactic Acid 1.6 Calcium Magnesium Total Bilirubin AST ALT Alkaline Phosphatase Creatine Kinase Creatine Kinase Index CK-MB (CK-2) Troponin I Total Protein Albumin Urine Color Yellow Urine Appearance Clear Urine pH 5.0 Ur Specific [place] 1.027 Urine Protein Negative Urine Glucose (UA) Negative Urine Ketones Negative Urine Blood Negative Urine Nitrite Negative Urine Bilirubin Negative Urine Urobilinogen 1.0 Ur Leukocyte Esterase Negative 03/18/19 03/19/19 03/19/19 15:17 04:20 04:20 WBC 5.2 RBC 5.12 Hgb 14.8 Hct 44.3 MCV 86.6 MCH 28.9 MCHC 33.4 RDW 14.1 Plt Count 211 MPV 8.7 Absolute Neuts (auto) 3.7 Neutrophils % 71.2 Lymphocytes % 9.3 D Monocytes % 13.8 H Eosinophils % 5.0 H D Basophils % 0.7 Nucleated RBC % 0 PT with INR INR PTT (Actin FS) VBG pH 7.39 POC VBG pCO2 41.3 POC VBG pO2 50.5 H VBG HCO3 24.5 VBG O2 Sat (Michael) 84.8 H VBG Base Excess 0 Sodium 140 Potassium 4.0 Chloride 107 Carbon Dioxide 28 Anion Gap 6 L BUN 14.8 Creatinine 1.1 Est GFR (CKD-EPI)AfAm 77.32 Est GFR (CKD-EPI)NonAf 66.71 Random Glucose 94 Lactic Acid Calcium 8.4 L Magnesium 2.4 Total Bilirubin 1.0 AST 48 H ALT 73 H Alkaline Phosphatase 103 Creatine Kinase Creatine Kinase Index CK-MB (CK-2) Troponin I Total Protein 6.2 L Albumin 3.0 L Urine Color Urine Appearance Urine pH Ur Specific [place] Urine Protein Urine Glucose (UA) Urine Ketones Urine Blood Urine Nitrite Urine Bilirubin Urine Urobilinogen Ur Leukocyte Esterase S1 S2 RRR Lungs clear Neck-- no masses Skin-- no lesions Has psoriasis Abd- soft, obese, NT No edema Microbiology 03/18/19 15:17 Urine - Urine Clean Catch Urine Culture - Final NO GROWTH OBTAINED PLAN positive blood cultures - 2 sets-- alpha hemolytic strep received Zosyn Repeat blood cultures pending urine cultures negative pt does not appear to be septic, his WBC is normal ID eval Problem List - Problems (1) Abnormal laboratory test Code(s): R89.9 - UNSP ABNORMAL FINDING IN SPECIMENS FROM OTH ORG/TISS (2) Dysphagia Code(s): R13.10 - DYSPHAGIA, UNSPECIFIED (3) Positive blood culture Code(s): R78.81 - BACTEREMIA
--- NOTE | 2019-03-19 16:50 | PN ---
Progress Note (short form) - Note Progress Note: ID consult dictated imp/reccd bacteremia- strep s/p food impaction he feels well would get chest ct to r/o aspiration would get echo in am esr/crp continue zosyn while awaiting the above d/w patient and at length Problem List - Problems (1) Bacteremia Code(s): R78.81 - BACTEREMIA (2) Food impaction of esophagus Code(s): T18.128A - FOOD IN ESOPHAGUS CAUSING OTHER INJURY, INITIAL ENCOUNTER Qualifiers: Encounter type: initial encounter Qualified Code(s): T18.128A - Food in esophagus causing other injury, initial encounter
[2019-03-19] MEDS ORDERED: DEXTROSE 5%-WATER 100 ML IVPB ONE (18:15)
[2019-03-19] MEDS ORDERED: PIPERACILLIN/TAZOBACTAM 4.5 GM VIAL IVPB ONE (18:15)
[2019-03-19] MEDS: PIPERACILLIN/TAZOB 4.5 GM 4.5 GM in DEXTROSE 5%-WATER 100 ML IVPB SCH (18:21)
--- NOTE | 2019-03-19 20:28 | CONS ---
DATE OF CONSULTATION: DATE OF DICTATION: 03/19/2019 INFECTIOUS DISEASE CONSULTATION REQUESTING PHYSICIAN: Maribeth Blanco M.D. CONSULTING PHYSICIAN: Lizzy Castro M.D. HISTORY OF PRESENT ILLNESS: This is a 74-year-old man with a past medical history of hyperlipidemia, spinal fusion, and dysphagia. He was called back to the emergency room on the for positive blood cultures. He was seen on the for a food impaction. On the evening he had gone out for dinner and had steak. He subsequently developed food impaction, was not able to pass the food bolus. He on Sunday went to an urgent care center for evaluation, had some antinausea medicine, was sent home. The symptoms persisted. He reports he was not even able to drink a cup of water, and he presented on the to the emergency room. In the ER on the , he was noted to have a white count of 18,000. He was otherwise afebrile, and he had blood cultures drawn because of elevated white count. He had a chest x-ray and a soft tissue unremarkable. He was treated with glucagon and then was able to tolerate water and able to feel better, so he has had endoscopies several times in the past. He has had one prior food impaction, and is followed by Dr. Parada, and he reports he has a hiatal hernia. PAST MEDICAL HISTORY: Notable for hiatal hernia, hyperlipidemia, spinal fusion, one episode of food impaction 5 years ago, and he has had vein surgery several years ago. MEDICATION: Medicines include vitamin C, Lasix, potassium, simvastatin, vitamin B12, Pepcid, and Reglan. ALLERGIES: No known drug allergies. FAMILY HISTORY: Notable for heart disease. SOCIAL HISTORY: No history of cigarette, alcohol, or substance use. He is retired. He lives with his . There are no sick contacts. REVIEW OF SYSTEMS: He has no fevers or chills. He has not had any dental work. Reports feeling great and having no trouble eating, which he has been doing since he left the hospital. He has a scheduled followup in March with Dr. Parada. He denies any dental work. He denies any night sweats. He denies any fevers or chills. He has not had any vomiting. PHYSICAL EXAMINATION: General: He is awake and alert in no acute distress. Vital Signs: Temperature is 98.4, pulse 84, blood pressure 136/78, respiratory rate is 18, saturating 98%. HEENT: Normocephalic. Eyes are anicteric. Neck: Supple. Lungs: Clear to auscultation. Heart: Regular rate and rhythm. Abdomen: Soft, nontender. Extremities: Without edema. He has no stigmata of endocarditis. LABORATORY: Notable, white count on the was 18, on admission on the was 5. Hemoglobin is 15.6, platelets are 211. His BUN and creatinine were 27 and 1.2 on the , today are 14 and 1.1. AST of 48 and ALT of 73. Urinalysis is unremarkable. It is completely negative today on the . He had protein, ketones, and some blood, all of which have cleared. Blood cultures from the , 2 separate bottles are growing alpha hemolytic strep, further ID pending. Blood culture from the are negative. Of note, on the he received a dose of Unasyn 3 g in the emergency room. Urine culture is negative. Repeat chest x-ray done on the is unremarkable. An EKG as well is unremarkable. IMPRESSION: In summary, this is a 74-year-old man admitted from home with a food impaction with leukocytosis now noted to have a strep bacteremia, probable mouth denice. The question is, could he have had a transient bacteremia due to the food impaction. Also would be concerned, could he have aspirated and developed perhaps a lung abscess. So would suggest at this time that we would continue the Zosyn overnight, would get a chest CT. He will need an echo. Will get a sedimentation rate and a CRP with further discussion of duration of treatment based on these results. This is discussed at length with the presentation and his who is at his bedside. LIZZY CASTRO M.D. [id number]
[2019-03-19] MEDS: ATORVASTATIN CA 10 MG TABLET (FP) PO SCH (21:05)
[2019-03-20] MEDS ORDERED: PIPERACILLIN/TAZOBACTAM 4.5 GM VIAL IVPB ONE ×2 (02:01→10:40)
[2019-03-20] MEDS: PIPERACILLIN/TAZOB 4.5 GM 4.5 GM in DEXTROSE 5%-WATER 100 ML IVPB SCH ×2 (02:01→10:42)
[2019-03-20] MEDS ORDERED: DEXTROSE 5%-WATER 100 ML IVPB ONE ×3 (02:02→17:58)
[2019-03-20 09:35] LABS: BASO % 0.8 % (0-2.0); EOS % 6.7 % (0-4.5); HEMATOCRIT 49.2 % (35.4-49); HEMOGLOBIN 16.5 GM/dL (11.7-16.9); LYMPH % 12.4 % (8-40); MCH 29.1 pg (25.7-33.7); MCHC 33.4 g/dl (32.0-35.9); MEAN PLT VOLUME 9.3 fl (7.5-11.1); MONO % 13.2 % (3.8-10.2); NEUT % 66.9 % (42.8-82.8); PLATELET COUNT 230 K/MM3 (134-434); RBC 5.66 M/mm3 (4.00-5.60); RDW 13.9 % (11.9-15.9); WHITE BLOOD COUNT 4.7 K/mm3 (4.0-10.0)
[2019-03-20 10:07] LABS: BLOOD UREA NITROGEN 16.9 mg/dL (7-18); CALCIUM 8.9 mg/dL (8.5-10.1); CREATININE 1.2 mg/dL (0.55-1.3); POTASSIUM 4.2 mmol/L (3.5-5.1)
[2019-03-20] MEDS: FUROSEMIDE 40 MG TABLET (FP) PO SCH (10:42)
--- NOTE | 2019-03-20 12:14 | PN ---
Progress Note (short form) - Note Progress Note: pt walking in the hallways tolerating diet No complaints no rashes, sore throat no fever Vital Signs - 24 hr 03/19/19 03/19/19 03/19/19 15:00 18:33 22:00 Temperature 98.4 F 97.6 F Pulse Rate 84 72 Respiratory 18 Rate Blood Pressure 136/78 145/81 O2 Sat by Pulse 98 Oximetry (%) 03/20/19 05:04 Temperature 98.3 F Pulse Rate 82 Respiratory 18 Rate Blood Pressure 118/62 O2 Sat by Pulse Oximetry (%) Current Medications Generic Name Dose Route Start Last Admin Trade Name Freq PRN Reason Stop Dose Admin Acetaminophen 650 mg 03/18/19 22:22 Tylenol - PO Q6H PRN PAIN LEVEL 4 - 6 Atorvastatin Calcium 10 mg 03/18/19 22:00 03/19/19 21:05 Lipitor - PO 10 mg HS JACOBY Administration Furosemide 40 mg 03/19/19 10:00 03/20/19 10:42 Lasix - PO 40 mg DAILY JACOBY Administration Piperacillin Sod/Tazobactam 100 mls @ 200 mls/hr 03/19/19 18:00 03/20/19 10: 42 Sod 4.5 gm/ Dextrose IVPB 200 mls/hr Q8H-IV JACOBY Administration Protocol Laboratory Results - last 24 hr 03/20/19 03/20/19 03/20/19 08:30 08:30 08:30 WBC 4.7 RBC 5.66 H Hgb 16.5 Hct 49.2 H MCV 87.0 MCH 29.1 MCHC 33.4 RDW 13.9 Plt Count 230 MPV 9.3 Absolute Neuts (auto) 3.1 Neutrophils % 66.9 Lymphocytes % 12.4 D Monocytes % 13.2 H Eosinophils % 6.7 H Basophils % 0.8 Nucleated RBC % 0 ESR 11 Sodium 140 Potassium 4.2 Chloride 106 Carbon Dioxide 25 Anion Gap 8 BUN 16.9 Creatinine 1.2 Est GFR (CKD-EPI)AfAm 69.60 Est GFR (CKD-EPI)NonAf 60.05 Random Glucose 82 Calcium 8.9 C-Reactive Protein 1.7 H S1 S2 RRR Lungs clear Neck-- no masses Skin-- no lesions Has psoriasis Abd- soft, obese, NT No edema Microbiology 03/18/19 15:17 Blood Culture - Preliminary Blood - Peripheral Venous NO GROWTH OBTAINED AFTER 24 HOURS, INCUBATION TO CONTINUE FOR 4 DAYS. 03/18/19 15:17 Blood Culture - Preliminary Blood - Peripheral Venous NO GROWTH OBTAINED AFTER 24 HOURS, INCUBATION TO CONTINUE FOR 4 DAYS. 03/18/19 15:17 Urine Culture - Final Urine - Urine Clean Catch NO GROWTH OBTAINED PLAN positive blood cultures - 2 sets-- alpha hemolytic strep ID eval noted CT chest-- nodules+, no lung abscess-- discussed with pt Echo done-- results pending on Zosyn Repeat blood cultures negative so far urine cultures negative Problem List - Problems (1) Abnormal laboratory test Code(s): R89.9 - UNSP ABNORMAL FINDING IN SPECIMENS FROM OTH ORG/TISS (2) Dysphagia Code(s): R13.10 - DYSPHAGIA, UNSPECIFIED (3) Positive blood culture Code(s): R78.81 - BACTEREMIA
--- NOTE | 2019-03-20 14:00 | ECHO ---
Name: HUGH MITCHELL Exam:Adult Echocardiogram Study Date: 03/20/2019 08:43 AM Age: 74 yrs Reason For Study: R/O Endocarditis Height: 72 in Weight: 252 lb BSA: 2.4 m2 MMode/2D Measurements & Calculations IVSd: 1.5 cm Ao root diam: 3.1 cm LVIDd: 3.4 cm LA dimension: 3.8 cm LVIDs: 2.3 cm LVPWd: 1.0 cm EDV(Teich): 46.9 ml LVOT diam: 2.0 cm ESV(Teich): 18.8 ml LAV (MOD-bp): 36.3 ml Doppler Measurements & Calculations MV E max william: 85.4 cm/sec Ao V2 max: 157.5 cm/sec MV A max william: 100.4 cm/sec Ao max P.9 mmHg MV E/A: 0.85 MV dec time: 0.23 sec KIRAN(V,D): 2.1 cm2 LV V1 max P.4 mmHg MR max william: 264.7 cm/sec LV V1 max: 104.3 cm/sec MR max P.0 mmHg TR max william: 237.5 cm/sec PA V2 max: 145.2 cm/sec TR max P.6 mmHg PA max P.4 mmHg Med Peak E' William: 6.4 cm/sec Med E/e': 13.3 Lat Peak E' William: 11.6 cm/sec Lat E/e': 7.3 Procedure A complete two-dimensional transthoracic echocardiogram was performed (2D, M-mode, Doppler and color flow Doppler). Left Ventricle There is mild concentric left ventricular hypertrophy. The left ventricular ejection fraction is norm al. Ejection Fraction = 60-65%. The left ventricular wall motion is normal. Right Ventricle The right ventricle is normal in size and function. Atria Normal left and right atrial size and function. Mitral Valve There is no mitral regurgitation noted. Tricuspid Valve There is trace tricuspid regurgitation. Right ventricular systolic pressure is normal. Aortic Valve No hemodynamically significant valvular aortic stenosis. No aortic regurgitation is present. Pulmonic Valve The pulmonic valve is not well visualized. There is no pulmonic valvular regurgitation. Great Vessels The aortic root is normal size. Pericardium/Pleura There is no pericardial effusion. Interpretation Summary There is mild concentric left ventricular hypertrophy. The left ventricular ejection fraction is normal. The right ventricle is normal in size and function. There is trace tricuspid regurgitation. MD Glen Camarena 03/20/2019 01:59 PM
--- NOTE | 2019-03-20 16:10 | CON.GI ---
Consult Consult Specialty:: GI Referred by:: Dr. Blanco Reason for Consultation:: Bacteremia s/p food impaction - History of Present Illness Chief Complaint: Esophageal food impaction History of Present Illness: 74M recently evaluated at the [facility] ER 03/16 secondary to esophageal food impaction. He ate steak 03/14, had difficulty swallowing after that, went to urgent care where he received antiemetics (no relief) and ultimately came to the ER. By then his symptoms had resolved and he was sent home. He was noted to have a leukocytosis. Blood cultures were drawn and he grew an alpha hemolytic strep. He was recalled to [facility] and admitted. He was evaluated by ID who started Abx. CT of the chest failed to reveal any acute pathology within the chest. Reviewing the CT scan, it appears as though he may have a hiatal hernia. Mr. Lewis stated that after the food impaction resolved, he did experience chest soreness. He put himself on a soft diet (pastina, etc), however he also was able to eat a hamburger with fries for lunch sunday. he was placed on a regular diet here and denies any odynopahgia. Recent upper GI series 12/[address] Harrington, Mr. Lewis' ENT, revealed mild tertiary contractions of the distal esophagus and was otherwise unrevealing. A barium pill passed without difficulty. 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 Juan Parada, whom he will be seeing 04/17. Dr. Parada has performed 2-3 endoscopies for Mr. Lewis in the past, the last being 1-2 years ago. He states that they have been "OK" and does remember being told of a hiatal hernia / He had an episode of food impaction 4-5 years ago that seemed to resolve on its own. There is no family history of colorectal cancer or other GI malignancy. 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 Place of : [facility] History of Recent Travel: No Home Medications - Allergies Allergies/Adverse Reactions: Allergies Allergy/AdvReac Type Severity Reaction Status Date / Time No Known Allergies Allergy Verified 03/18/19 14:36 - Home Medications Home Medications: Ambulatory Orders Ascorbic Acid [Vitamin C] 500 mg PO DAILY 05/25/16 Calcium (Oyster Shell) [Os-Selvin 500MG -] 500 mg PO DAILY 05/25/16 Furosemide [Lasix -] 40 mg PO ASDIR 05/25/16 Potassium Chloride 10 meq PO ASDIR 05/25/16 Simvastatin 10 mg PO HS 05/25/16 Acetaminophen [Tylenol .Regular Strength -] 650 mg PO Q4H PRN #0 tablet Cyanocobalamin [Vitamin B12 -] 1,000 mcg PO DAILY 03/16/19 Famotidine [Pepcid] 40 mg PO DAILY 03/16/19 Metoclopramide HCl [Reglan -] 10 mg PO QID PRN 03/16/19 Family Disease History - Family Disease History Family Disease History: Other: Father (: 89: h/o VA / "heart problems"), Mother (: 95: "Old age"), Brother (2, healthy), Son (2, 1 with DM II), Daughter (1, healthy) Other Family History: No family history of colorectal cancer or other GI malignancy Review of Systems - Review of Systems Constitutional: denies: Chills Cardiovascular: denies: Chest Pain Respiratory: denies: Cough Gastrointestinal: denies: Abdominal Pain, Nausea Physical Exam-GI Vital Signs: Vital Signs Temperature 98.3 F 03/20/19 05:04 Pulse Rate 82 03/20/19 05:04 Respiratory Rate 18 03/20/19 09:00 Blood Pressure 118/62 03/20/19 05:04 O2 Sat by Pulse Oximetry (%) 98 03/20/19 09:00 Constitutional: Yes: Calm Eyes: No: Sclera Icterus Cardiovascular: Yes: Regular Rate and Rhythm. No: Murmur Respiratory: Yes: CTA Bilaterally Gastrointestinal Inspection: Yes: Other (+ rectus diastasis). No: Distention, Scars ...Auscultate: Yes: Normoactive Bowel Sounds ...Palpate: Yes: Soft. No: Hepatomegaly, Splenomegaly, Tenderness ...Percussion: No: Tympanitic Extremities: Yes: Other (B/L LE stasis changes) Edema: No Neurological: Yes: Alert Labs: CBC, BMP 03/20/19 08:30 03/20/19 08:30 INR, PTT INR 1.08 (0.83-1.09) 03/18/19 15:17 Hepatic Panel Total Bilirubin 1.0 mg/dL (0.2-1) 03/19/19 04:20 AST 48 U/L (15-37) H 03/19/19 04:20 ALT 73 U/L (13-61) H 03/19/19 04:20 Alkaline Phosphatase 103 U/L (45-117) 03/19/19 04:20 Albumin 3.0 g/dl (3.4-5.0) L 03/19/19 04:20 Problem List - Problems (1) Food impaction of esophagus Assessment/Plan: Clinically asymptomatic. Suspect bacteremia may have been from translocation of bacteria in the setting of prolonged esophageal food impaction. ? if there is a motility issue, hiatal hernia or alternate etiology contrinuting to recurrent food impaction. Recent UGIS unrevealing Advise: Chopped diet for 1 week Protonix 40mg once daily Esophagram 03/21 Follow-up with his hat forming machine operator Dr. Parada as scheduled in 04/17 Code(s): T18.128A - FOOD IN ESOPHAGUS CAUSING OTHER INJURY, INITIAL ENCOUNTER Qualifiers: Encounter type: initial encounter Qualified Code(s): T18.128A - Food in esophagus causing other injury, initial encounter
--- NOTE | 2019-03-20 16:35 | PN ---
Progress Note (short form) - Note Progress Note: no complaints feels well echo negative day #3 antibiotics Vital Signs Period Temp Pulse Resp BP Sys/Black Pulse Ox Last 24 Hr 97.6 F-98.3 F 72-82 18-18 118-145/62-81 98-98 cor-rrr lungs clear abd soft,nt ext no edema CBC, BMP 03/20/19 08:30 03/20/19 08:30 Laboratory Tests 03/20/19 03/20/19 08:30 08:30 ESR 11 C-Reactive Protein 1.7 H blood cultures alpha hemolytic strep Microbiology 03/18/19 15:17 Blood - Peripheral Venous Blood Culture - Preliminary NO GROWTH OBTAINED AFTER 48 HOURS, INCUBATION TO CONTINUE FOR 3 DAYS. 03/18/19 15:17 Blood - Peripheral Venous Blood Culture - Preliminary NO GROWTH OBTAINED AFTER 48 HOURS, INCUBATION TO CONTINUE FOR 3 DAYS. 03/18/19 15:17 Urine - Urine Clean Catch Urine Culture - Final NO GROWTH OBTAINED a/p strep bacteremia-suspect translocation from food impaction echo WNL, inflammatory parameters wnl day #2 antibiotics for barium swallow tomorrow chest ct WNL plan for rocephin via picc line at home- can place picc line in am - rocephin 2 grams daily for total 10 days (another week at home)
[2019-03-20] MEDS ORDERED: CEFTRIAXONE 2 GM in DEXTROSE 5%-WATER 100 ML IVPB SCH (17:00)
[2019-03-20] MEDS: CEFTRIAXONE 2 GM in DEXTROSE 5%-WATER 100 ML IVPB SCH (19:04)
[2019-03-20] MEDS: PANTOPRAZOLE 40 MG TABLET (FP) PO SCH (19:04)
[2019-03-21 08:10] LABS: BASO % 0.8 % (0-2.0); EOS % 6.3 % (0-4.5); HEMOGLOBIN 15.5 GM/dL (11.7-16.9); LYMPH % 15.6 % (8-40); MCH 29.7 pg (25.7-33.7); MCHC 34.5 g/dl (32.0-35.9); MEAN CELL VOLUME 86.3 fl (80-96); MEAN PLT VOLUME 9.1 fl (7.5-11.1); MONO % 13.9 % (3.8-10.2); NEUT % 63.4 % (42.8-82.8); PLATELET COUNT 210 K/MM3 (134-434); RBC 5.22 M/mm3 (4.00-5.60); RDW 14.2 % (11.9-15.9)
[2019-03-21 08:51] LABS: ALBUMIN 2.9 g/dl (3.4-5.0); BILIRUBIN,TOTAL 0.7 mg/dL (0.2-1); CALCIUM 8.4 mg/dL (8.5-10.1); CREATININE 1.1 mg/dL (0.55-1.3); POTASSIUM 4.2 mmol/L (3.5-5.1); TOT PROT 6.2 g/dl (6.4-8.2)
--- NOTE | 2019-03-21 10:43 | PN ---
Progress Note (short form) - Note Progress Note: pt downstairs for esophagogram and picc line will follow
[2019-03-21] MEDS ORDERED: DEXTROSE 5%-WATER 100 ML IVPB ONE (10:50)
[2019-03-21] MEDS: CEFTRIAXONE 2 GM in DEXTROSE 5%-WATER 100 ML IVPB SCH (12:10)
[2019-03-21] MEDS: FUROSEMIDE 40 MG TABLET (FP) PO SCH (12:11)
[2019-03-21] MEDS: PANTOPRAZOLE 40 MG TABLET (FP) PO SCH ×2 (12:13→12:30)
--- NOTE | 2019-03-21 14:04 | DS ---
Physical Examination Vital Signs: Vital Signs Temperature 98.4 F 03/20/19 20:13 Pulse Rate 68 03/20/19 20:13 Respiratory Rate 18 03/21/19 12:16 Blood Pressure 129/80 03/20/19 20:13 O2 Sat by Pulse Oximetry (%) 98 03/21/19 12:16 Findings/Remarks: pt seen/ examined picc line placed eosophagogram noted and discussed with pt eating - soft diet ok Constitutional: Yes: No Distress, Calm Neck: Yes: Supple Cardiovascular: Yes: Regular Rate and Rhythm Respiratory: Yes: CTA Bilaterally Gastrointestinal: Yes: Soft Edema: No Neurological: Yes: Alert Labs: CBC, BMP 03/21/19 06:50 03/21/19 06:50 Discharge Summary Reason For Visit: BLOOD BACTERIALCULTURE POSITIVE Current Active Problems Abnormal laboratory test (Acute) Dysphagia (Acute) Food impaction of esophagus (Acute) Positive blood culture (Acute) Prophylactic measure (Acute) Hospital Course: strep bactremia. esophagogram for dysphagia-- due to food stuck Better discussed wants to go home f/u in office in 2 weeks gi f/u - out pt abx x 7 more days discussed with nursing staff also as well as Dr. Angel. Pt in agreement May need Esophageal dilatation as out pt. Condition: Good - Instructions Disposition: HOME - Home Medications Comprehensive Discharge Medication List: Ambulatory Orders Furosemide [Lasix -] 40 mg PO ASDIR 05/25/16 Simvastatin 10 mg PO HS 05/25/16 Acetaminophen [Tylenol .Regular Strength -] 650 mg PO Q4H PRN #0 tablet Cyanocobalamin [Vitamin B12 -] 1,000 mcg PO DAILY 03/16/19 Famotidine [Pepcid] 40 mg PO DAILY 03/16/19 Metoclopramide HCl [Reglan -] 10 mg PO QID PRN 03/16/19 Ceftriaxone [Rocephin -] 2 gm IVPB DAILY vial 03/21/19
[2019-03-21 15:12] VITALS: BP 135/77; PULSE 74; TEMP 98.5
== END 2019-03-21 15:49 | disposition home or self-care (01) | DRG 394 ==
LOC: JER 14:30 → JERBED 17:33 → J6S 03-19 04:01
PROVIDERS: ADMIT Internal Medicine; ATTEND Internal Medicine
PROC: 02HV33Z Insertion of Infusion Device into Superior Vena Cava, Percutaneous Approach (ICD-10-PCS; principal; 2019-03-21)
DX: T18.128A Food in esophagus causing other injury, initial encounter (principal); R78.81 Bacteremia; R13.10 Dysphagia, unspecified; I10 Essential (primary) hypertension; E78.5 Hyperlipidemia, unspecified; X58.XXXA Exposure to other specified factors, initial encounter; Y93.9 Activity, unspecified; Y92.89 Other specified places as the place of occurrence of the external cause; Y99.9 Unspecified external cause status; Y93.89 Activity, other specified
CPT/HCPCS: 36415; 36569; 71045-TC-FY; 71250-TC; 74220-TC-FY; 77001-TC-FY; 80048; 80053; 81003; 82550; 82553; 82803; 83605; 83735; 84484; 85025; 85610; 85651; 85730; 86140; 87040; 87086; 93005; 93010; 93306-TC; 99283-25; C1751